=== PATIENT | male | born 1940 ===

== ENCOUNTER 2018-02-02 11:27 | Emergency (ER) | payer OTHER ==
[~2018-02-02] VITALS: Ht 172.7 cm; Wt 86.2 kg
[~2018-02-02 11:27] MED LIST: ASA325 M1 PO; Cozaar PO; LIPITOR40 MG PO
[2018-02-02] MEDS ORDERED: LOSARTAN POTASS25 MG (11:37)
[2018-02-02] MEDS ORDERED: HYDROCHLOROTHIA25 MG (11:43)
[2018-02-02] MEDS ORDERED: HUMULIN 70100 UNIT/2 (11:43)
[2018-02-02] MEDS ORDERED: PLAVIX75 MG (11:43)
[2018-02-02] MEDS ORDERED: PNEU16DI2 (11:44)
[2018-02-02] MEDS ORDERED: SYNTHROID75 MCG (11:44)
[2018-02-02] MEDS ORDERED: NEURONTIN300 MG (11:44)
[2018-02-02] MEDS ORDERED: NORVASC5 MG (11:45)
== END 2018-02-02 17:05 | disposition home or self-care (01) ==
LOC: ER 11:27
DX: R53.1 Weakness (principal)